=== PATIENT | female | born 1945 | race Two or more races ===

== ENCOUNTER 2017-09-24 11:51 | Emergency (ER) | payer OTHER, BC ==
[2017-09-24 12:15] VITALS: BMI 23.8
[2017-09-24] MEDS ORDERED: SODIUM CHLORIDE 500 ML IV STA (12:30)
--- NOTE | 2017-09-24 12:38 | PDOC ---
Attending Attestation - HPI HPI: 09/24/17 12:39 The patient is a 71 year old female brought in by ambulance, accompanied by , with a past significant medical history of endometrial cancer s/p radiation therapy and hiatal hernia who presents to the emergency department after a syncopal episode earlier today. The patient reports decreased eating secondary to complications from her radiation treatment. She states she experienced dizziness while standing in [employer] prior to the syncopal episode. She was standing while experiencing dizziness prior to the episode. She denies any alleviating/modifying factors. She denies any trauma or confusion after her syncopal episode. She reports similar symptoms in the past. She denies any chest pain and shortness of breath. She denies any fever, chills, vomiting, or diarrhea. She denies any focal numbness or weakness. The patient has a surgical history of total hysterectomy. 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 Previous records from 12/2015 was discharged for a GI bleed. - Physicial Exam PE: 09/24/17 12:40 Vitals: Triage Vital signs reviewed General Appearance: no acute distress, well nourished well developed, Head: Atraumatic, normocephalic Eyes: Pupils equal reactive round, extraocular movement intact Nose: Nares patent bilaterally;no nasal congestion Throat: mucous membranes moist, Neck: Supple; No Nuchal rigidity Chest Wall: Nontender Cardiac: regular rate and rhythm, no murmurs, no rubs, no gallops, Lungs: Clear to auscultation bilateral, good air movement bilaterally, Abdomen: Soft, nondistended, normal bowel sounds, nontender to palpation Rectal: Exam deferred Extremities: Full range of motion to all extremities, no cyanosis, clubbing, or edema Skin: Warm and dry, no rashes or lesions, no petechiae Neuro: AOX3; Cranial Nerves 2-12 grossly c intact, Strength intact to all extremities, Sensation intact to all extremities, gait normal Psych: normal mood, normal affect - Medical Decision Making 09/24/17 12:38 Documentation prepared by Shana Cortez, acting as medical chemist for Leroy Calzada MD. 09/24/17 13:35 CXR: Reported by Dr. Derrick Arauz Impression: No acute pathology. <Shana Cortez - Last Filed: 09/24/17 13:35> - Resident Resident Name: Jonathan Gallardo - ED Attending Attestation I have performed the following: I have examined & evaluated the patient, The case was reviewed & discussed with the resident, I agree w/resident's findings & plan, Exceptions are as noted - Medical Decision Making History and examination consistent with vagal syncope likely secondary to not eating breakfast this morning. Patient had clear prodrome sat down at [employer] and then passed out. No asymptomatic with a normal EKG we'll check labs hydrate and reassess. 09/24/17 16:17 Pt. with extensive GI history can only tolerate ensure and fluids by mouth did not have anything for breakfast this morning while in a hot [employer]ism after standing began to feel dizzy lightheaded sweating had a syncopal episode spontaneous return of vitals In the emergency department status post IV fluids patient feels much better EKG with no ischemic changes no evidence of WPW, Brugada, prolonged QT. Her laboratory analysis was unremarkable, pt. feels much better and is able to ambulate comfortably around the emergency department. She'll be discharged to the care of her family. She'll follow-up with her primary care provider this week she'll return to the emergency department for any severe worsening symptoms or for any concerns. <Leroy Calzada - Last Filed: 09/24/17 16:19> Heart Score/ECG Review - ECG Intrepretation Comment:: 09/24/17 12:14 EKG performed at 12:13 demonstrates rate of 53, normal axis. No T wave inversions, no ST elevations. <Shana Cortez - Last Filed: 09/24/17 13:35>
--- NOTE | 2017-09-24 12:40 | PDOC ---
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 She states that she has been eating less lately as she's on a restricted diet due to complications from her radiation treatments. She states that she was standing in [employer] she she started to feel dizzy, weak and generally not well before sitting down and passing out. She states that she was not confused afterwards and denies any trauma. She denies chest pain, shortness of breath, leg swelling. Denies fevers, chills, vomiting. States that she has some nausea, but that it is at her baseline. 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,gerd, poor po intake, sees GI specia) Disorders: No HTN: No Hypercholesterolemia: No Liver Disease: No Seizures: No Thyroid Disease: No - Surgical History Abdominal Surgery: No Appendectomy: No Cardiac Surgery: No Cholecystectomy: No Lung Surgery: No Neurologic Surgery: No Orthopedic Surgery: No - Suicide/Smoking/Psychosocial Hx Smoking History: Never smoked Have you smoked in the past 12 months: No Information on smoking cessation initiated: No Hx Alcohol Use: No Drug/Substance Use Hx: No Substance Use Type: None Hx Substance Use Treatment: No Review of Systems - Review of Systems Comments:: 09/24/17 12:40 GENERAL/CONSTITUTIONAL: No fever or chills. HEAD, EYES, EARS, NOSE AND THROAT: No change in vision. No sore throat. CARDIOVASCULAR: No chest pain or shortness of breath RESPIRATORY: No cough, wheezing, or hemoptysis. GASTROINTESTINAL: Positive for nausea. Negative for vomiting, diarrhea or constipation. GENITOURINARY: No dysuria, frequency, or change in urination. MUSCULOSKELETAL: No joint or muscle swelling or pain. No neck or back pain. SKIN: No rash NEUROLOGIC: No headache, vertigo, loss of consciousness, or change in strength/ sensation. ALLERGIC/IMMUNOLOGIC: No hives or skin allergy. *Physical Exam - Vital Signs Last Vital Signs Temp Pulse Resp BP Pulse Ox 97.3 F L 56 L 20 132/71 99 09/24/17 12:12 09/24/17 12:12 09/24/17 12:12 09/24/17 12:12 09/24/17 12:12 - Physical Exam Comments: 09/24/17 12:41 GENERAL: Awake, alert, and fully oriented, in no acute distress HEAD: No signs of trauma, normocephalic, atraumatic EYES: PERRLA, EOMI, sclera anicteric, conjunctiva clear ENT: Auricles normal inspection, hearing grossly normal, nares patent, oropharynx clear without exudates. Dry mucosa LUNGS: No distress, speaks full sentences, clear to auscultation bilaterally HEART: Regular rate and rhythm, normal S1 and S2, no murmurs, rubs or gallops, peripheral pulses normal and equal bilaterally. ABDOMEN: Soft, nontender, normoactive bowel sounds. No guarding, no rebound. No masses EXTREMITIES: Normal inspection, Normal range of motion, no edema. No clubbing or cyanosis. NEUROLOGICAL: Cranial nerves II through XII grossly intact. Normal speech, no focal sensorimotor deficits SKIN: Warm, Dry, normal turgor, no rashes or lesions noted. 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 Vital signs notable for bradycardia to 56. Not on beta blockers. Patient appears well, but slightly dry. Differential diagnosis weighted towards vasovagal syncope, but will evaluate for ACS, arrhythmia, pneumonia, uti. 09/24/17 12:46 EKG shows sinus bradycardia (rate 53). No st elevations/depressions. Normal axis , regular rhythm. Normal TN, QRS, QTc intervals. 09/24/17 14:11 Laboratory Tests 09/24/17 09/24/17 09/24/17 12:55 12:59 13:14 WBC 10.0 D Hgb 11.5 D Hct 36.5 D Plt Count 256 D BUN 19 H D Creatinine 0.8 D Creat Clearance w eGFR > 60 Troponin I < 0.02 Urine Nitrite Negative Ur Leukocyte Esterase Negative CXR read as no acute cardiopulmonary disease. CBC normal. CMP shows normal kidney function, no significant abnormalities. Trop negative. UA negative. Patient received 500ml of IV fluids, states that she's feeling well. Did walk test around department. Reports no chest pain, shortness of breath, or dizziness , says that she feels fine. Wants to go home. Richardson syncope negative. Will discharge with PCP follow up and return precautions. *DC/Admit/Observation/Transfer Diagnosis at time of Disposition: Syncope - Discharge Dispostion Disposition: HOME Condition at time of disposition: Good Admit: No - Referrals Referrals: Thomas Swann MD [Primary Care Provider] - - Patient Instructions Printed Discharge Instructions: DI for Syncope in Adults (Fainting) Additional Instructions: Please return if you have any new, worsening or concerning symptoms. Please call to make an appointment to see your PCP tomorrow. Please see your PCP early this week. - Post Discharge Activity
[2017-09-24 13:11] LABS: BASO % 0.7 % (0-2.0); EOS % 2.1 % (0-4.5); HEMATOCRIT 36.5 % (32.4-45.2); HEMOGLOBIN 11.5 GM/dL (10.7-15.3); LYMPH % 13.5 % (8-40); MCH 25.1 pg (25.7-33.7); MCHC 31.4 g/dl (32.0-36.0); MEAN CELL VOLUME 79.7 fl (80-96); MEAN PLT VOLUME 8.5 fl (7.5-11.1); MONO % 5.1 % (3.8-10.2); NEUT % 78.6 % (42.8-82.8); PLATELET COUNT 256 K/MM3 (134-434); RBC 4.58 M/mm3 (3.60-5.2); RDW 13.9 % (11.6-15.6)
[2017-09-24 13:25] LABS: INR 1.02 (0.82-1.09); PROTHROMBIN TIME (PATIENT) 11.5 SEC (9.98-11.88)
[2017-09-24 13:36] LABS: URINE APPEARANCE SLCLOUDY; URINE BILIRUBIN NEGATIVE (NEGATIVE); URINE BLOOD NEGATIVE (NEGATIVE); URINE COLOR YELLOW; URINE GLUCOSE (UA) NEGATIVE (NEGATIVE); URINE KETONE NEGATIVE (NEGATIVE); URINE LEUK ESTERASE NEGATIVE (NEGATIVE); URINE NITRITE NEGATIVE (NEGATIVE); URINE PROTEIN NEGATIVE (NEGATIVE); URINE UROBILINOGEN NEGATIVE mg/dL (0.2-1.0)
[2017-09-24 13:40] LABS: ALBUMIN 3.4 g/dl (3.4-5.0); ANION GAP 5 (8-16); BLOOD UREA NITROGEN 19 mg/dL (7-18); CALCIUM 8.4 mg/dL (8.5-10.1); CHLORIDE 107 mmol/L (98-107); CO2 28 mmol/L (21-32); GLUCOSE,RANDOM 109 mg/dL (74-106); SODIUM 140 mmol/L (136-145)
[2017-09-24 13:45] LABS: ALK PHOS 61 U/L (45-117); BILIRUBIN,TOTAL 0.3 mg/dL (0.2-1.0); CREATININE 0.8 mg/dL (0.55-1.02); SGPT/ALT 25 U/L (12-78); TOT PROT 7.1 g/dl (6.4-8.2)
[2017-09-24 13:49] LABS: MAGNESIUM 2.1 mg/dL (1.8-2.4); POTASSIUM 4.6 mmol/L (3.5-5.1); SGOT/AST 24 U/L (15-37)
[2017-09-24 14:20] VITALS: BP 128/68; PULSE 64; TEMP 97.1
--- NOTE | 2017-09-25 12:38 | EKG ---
Test Reason : Blood Pressure : / mmHG Vent. Rate : 053 BPM Atrial Rate : 053 BPM P-R Int : 134 ms QRS Dur : 084 ms QT Int : 454 ms P-R-T Axes : 013 013 049 degrees QTc Int : 426 ms SINUS BRADYCARDIA OTHERWISE NORMAL ECG WHEN COMPARED WITH ECG OF 29-DEC-2015 15:19, VENT. RATE HAS DECREASED BY [address] SEGMENT VARIATION Confirmed by RUSLAN LENNON MD ([id number]) on 09/25/2017 12:38:04 PM Referred By: Confirmed By:RUSLAN LENNON MD
== END 2017-09-24 14:28 | disposition home or self-care (01) ==
LOC: JER 11:51
PROC: 3E0337Z Introduction of Electrolytic and Water Balance Substance into Peripheral Vein, Percutaneous Approach (ICD-10-PCS; principal; 2017-09-24)
DX: R55 Syncope and collapse (principal); C54.1 Malignant neoplasm of endometrium; Z90.710 Acquired absence of both cervix and uterus
CPT/HCPCS: 36415; 71046-TC; 80053; 81003; 82550; 83735; 84484; 85025; 85610; 93005; 93010; 96360; 99284-25

== ENCOUNTER 2019-01-30 07:59 | Day surgery (SDC) | payer OTHER, BC ==
[2019-01-29 16:18] VITALS: BMI 23.4
[2019-01-30 10:13] VITALS: TEMP 97
[2019-01-30 14:30] VITALS: BP 126/57; PULSE 64
== END 2019-01-30 12:56 | disposition home or self-care (01) ==
LOC: JASU-ENDO 07:59
PROVIDERS: ATTEND Internal Medicine Gastroenterology
PROC: 0DJD8ZZ Inspection of Lower Intestinal Tract, Via Natural or Artificial Opening Endoscopic (ICD-10-PCS; principal; 2019-01-30 09:00)
DX: Z12.11 Encounter for screening for malignant neoplasm of colon (principal); Z86.010 Personal history of colon polyps; K64.8 Other hemorrhoids; K63.89 Other specified diseases of intestine
CPT/HCPCS: 74270-TC-FY

== ENCOUNTER 2020-08-01 16:08 | Inpatient (IN) | payer OTHER, BC ==
[2020-08-01] MEDS ORDERED: LACTATED RINGERS SOLUTION 1000 ML INFUS.BAG IV ONE (17:06)
[2020-08-01] MEDS ORDERED: ONDANSETRON 4 MG/2 ML VIAL IVPUSH ONE (17:09)
[2020-08-01 18:04] LABS: CHLORIDE 99 mmol/L (98-107); POTASSIUM 4.5 mmol/L (3.5-5.1); SODIUM 132 mmol/L (136-145)
[2020-08-01 18:06] LABS: ALBUMIN 2.7 g/dl (3.4-5.0); ANION GAP 7 MMOL/L (8-16); CO2 25 mmol/L (21-32); LIPASE 242 U/L (73-393)
[2020-08-01 18:07] LABS: BLOOD UREA NITROGEN 8.8 mg/dL (7-18); GLUCOSE,RANDOM 122 mg/dL (74-106)
[2020-08-01 18:09] LABS: CREATININE 0.9 mg/dL (0.55-1.3); SGOT/AST 67 U/L (15-37); SGPT/ALT 26 U/L (13-61)
[2020-08-01 18:11] LABS: BILIRUBIN,TOTAL 0.8 mg/dL (0.2-1)
[2020-08-01 18:12] LABS: ALK PHOS 58 U/L (45-117)
[2020-08-01 18:15] LABS: N-TERMINAL BNP 107.8 pg/ml (5-450)
[2020-08-01 18:59] LABS: EOS % 0.2 % (0-4.5); HEMATOCRIT 32.1 % (32.4-45.2); HEMOGLOBIN 10.7 GM/dL (10.7-15.3); LYMPH % 28.1 % (8-40); MCH 26.9 pg (25.7-33.7); MCHC 33.2 g/dl (32.0-36.0); MEAN CELL VOLUME 80.9 fl (80-96); MEAN PLT VOLUME 7.7 fl (7.5-11.1); MONO % 22.9 % (3.8-10.2); NEUT % 47.8 % (42.8-82.8); PLATELET COUNT 264 K/MM3 (134-434); RBC 3.97 M/mm3 (3.60-5.2); RDW 13.3 % (11.6-15.6); WHITE BLOOD COUNT 4.6 K/mm3 (4.0-10.0)
[2020-08-01 19:59] LABS: EPI CELLS 15 /uL (0-25.1); HYALINE CASTS 5 /uL (0-3.1); PH,URINE 5.5 (5.0-8.0); URINE APPEARANCE CLEAR; URINE BACTERIA 12 /uL (0-1359); URINE BILIRUBIN NEGATIVE (NEGATIVE); URINE COLOR DK YELLOW; URINE GLUCOSE (UA) NEGATIVE (NEGATIVE); URINE KETONE NEGATIVE (NEGATIVE); URINE LEUK ESTERASE NEGATIVE (NEGATIVE); URINE NITRITE NEGATIVE (NEGATIVE); URINE PROTEIN 1+ (NEGATIVE); URINE WBC 12 /uL (0-25.8)
[2020-08-01 20:03] LABS: ANISOCYTOSIS 0; MACROCYTOSIS 0; PLATELET ESTIMATE NORMAL
[2020-08-01 21:03] LABS: URINE RBC 28.9 /uL (0-23.9)
[2020-08-01] MEDS ORDERED: LIDOCAINE HCL 2% JELLY 10 ML CARTRIDGE ONE (22:19)
[2020-08-02] MEDS: SODIUM CHLORIDE 1,000 ML IV SCH ×2 (02:56→14:08)
[2020-08-02 04:36] VITALS: BMI 22.4
[2020-08-02] MEDS ORDERED: ACETAMINOPHEN 1000 MG/100 ML VIAL (NON FORMULARY) IVPB PRN (08:57)
[2020-08-02] MEDS: ACETAMINOPHEN 1000 MG/100 ML VIAL (NON FORMULARY) IVPB PRN (09:41)
[2020-08-02 11:54] LABS: BASO % 0.5 % (0-2.0); HEMATOCRIT 30.9 % (32.4-45.2); HEMOGLOBIN 10.2 GM/dL (10.7-15.3); LYMPH % 26.3 % (8-40); MCH 26.7 pg (25.7-33.7); MEAN CELL VOLUME 80.9 fl (80-96); MEAN PLT VOLUME 8.3 fl (7.5-11.1); NEUT % 54.2 % (42.8-82.8); PLATELET COUNT 263 K/MM3 (134-434); RBC 3.81 M/mm3 (3.60-5.2); RDW 13.3 % (11.6-15.6); WHITE BLOOD COUNT 4.3 K/mm3 (4.0-10.0)
[2020-08-02 11:58] LABS: POTASSIUM 4.6 mmol/L (3.5-5.1)
[2020-08-02 12:01] LABS: CALCIUM 7.7 mg/dL (8.5-10.1)
[2020-08-02 12:04] LABS: CREATININE 0.7 mg/dL (0.55-1.3)
[2020-08-02] MEDS ORDERED: PIPERACILLIN/TAZOBACTAM 3.375 GM VIAL IVPB ONE ×2 (14:05→17:45)
[2020-08-02] MEDS ORDERED: DEXTROSE 5%-WATER - 50 ML IVPB ONE ×2 (14:05→17:45)
[2020-08-02] MEDS: PIPERACILLIN/TAZOB 3.375 GM 3.375 GM in DEXTROSE 5%-WATER - 50 ML IVPB SCH ×2 (14:06→18:32)
[2020-08-02] MEDS ORDERED: BENZOCAINE/MENTH/CETYLPYRD CL 1 EACH LOZENGE MM PRN (18:10)
[2020-08-02] MEDS ORDERED: PHENOL 177 ML SPRAY BOTTLE MM PRN (18:39)
[2020-08-02] MEDS ORDERED: PT OWN MED DRAWER 7, Y5N ONE (20:19)
[2020-08-03] MEDS ORDERED: PIPERACILLIN/TAZOBACTAM 3.375 GM VIAL IVPB ONE ×3 (01:03→18:14)
[2020-08-03] MEDS ORDERED: DEXTROSE 5%-WATER - 50 ML IVPB ONE ×3 (01:04→18:14)
[2020-08-03] MEDS: SODIUM CHLORIDE 1,000 ML IV SCH ×2 (01:44→15:26)
[2020-08-03] MEDS: PIPERACILLIN/TAZOB 3.375 GM 3.375 GM in DEXTROSE 5%-WATER - 50 ML IVPB SCH ×3 (02:43→18:40)
[2020-08-03 08:44] LABS: HEMATOCRIT 30.9 % (32.4-45.2); HEMOGLOBIN 10.1 GM/dL (10.7-15.3); MCH 26.3 pg (25.7-33.7); MCHC 32.7 g/dl (32.0-36.0); MEAN CELL VOLUME 80.3 fl (80-96); MEAN PLT VOLUME 7.7 fl (7.5-11.1); PLATELET COUNT 293 K/MM3 (134-434); RBC 3.84 M/mm3 (3.60-5.2); RDW 13.6 % (11.6-15.6); WHITE BLOOD COUNT 4.7 K/mm3 (4.0-10.0)
[2020-08-03] MEDS: ACETAMINOPHEN 1000 MG/100 ML VIAL (NON FORMULARY) IVPB PRN (08:53)
[2020-08-03 09:04] LABS: POTASSIUM 4.2 mmol/L (3.5-5.1)
[2020-08-03 09:07] LABS: ALBUMIN 2.3 g/dl (3.4-5.0); BLOOD UREA NITROGEN 11.4 mg/dL (7-18); CALCIUM 7.4 mg/dL (8.5-10.1)
[2020-08-03 09:09] LABS: CREATININE 0.6 mg/dL (0.55-1.3)
[2020-08-03 09:10] LABS: PHOSPHOROUS 3.4 mg/dL (2.5-4.9)
[2020-08-03 09:11] LABS: BILIRUBIN,TOTAL 0.8 mg/dL (0.2-1); TOT PROT 5.7 g/dl (6.4-8.2)
[2020-08-04] MEDS ORDERED: PIPERACILLIN/TAZOBACTAM 3.375 GM VIAL IVPB ONE ×3 (01:51→16:38)
[2020-08-04] MEDS ORDERED: DEXTROSE 5%-WATER - 50 ML IVPB ONE ×3 (01:51→16:38)
[2020-08-04] MEDS: PIPERACILLIN/TAZOB 3.375 GM 3.375 GM in DEXTROSE 5%-WATER - 50 ML IVPB SCH ×3 (01:57→16:59)
[2020-08-04] MEDS: SODIUM CHLORIDE 1,000 ML IV SCH ×2 (04:34→17:00)
[2020-08-04 08:55] LABS: BASO % 0.5 % (0-2.0); EOS % 0.3 % (0-4.5); HEMATOCRIT 30.4 % (32.4-45.2); LYMPH % 17.2 % (8-40); MCH 26.4 pg (25.7-33.7); MCHC 32.8 g/dl (32.0-36.0); MEAN CELL VOLUME 80.6 fl (80-96); MEAN PLT VOLUME 7.8 fl (7.5-11.1); MONO % 12.8 % (3.8-10.2); NEUT % 69.2 % (42.8-82.8); PLATELET COUNT 343 K/MM3 (134-434); RBC 3.77 M/mm3 (3.60-5.2); RDW 13.8 % (11.6-15.6); WHITE BLOOD COUNT 6.5 K/mm3 (4.0-10.0)
[2020-08-04 09:19] LABS: POTASSIUM 3.4 mmol/L (3.5-5.1)
[2020-08-04 09:22] LABS: BLOOD UREA NITROGEN 15.9 mg/dL (7-18); CALCIUM 7.6 mg/dL (8.5-10.1)
[2020-08-04 09:26] LABS: CREATININE 0.7 mg/dL (0.55-1.3); PHOSPHOROUS 2.6 mg/dL (2.5-4.9)
[2020-08-04 10:12] LABS: ANISOCYTOSIS 0; MACROCYTOSIS 0; PLATELET ESTIMATE NORMAL; TEAR DROP CELLS 1+
[2020-08-04] MEDS: KCL 10 MEQ IVPB 10 MEQ/100 ML INFUS.BAG IVPB SCH ×3 (17:40→22:42)
[2020-08-04] MEDS: HEPARIN NA (PORCINE) 5,000 UNITS/ML 1ML VIAL SQ SCH (21:35)
[2020-08-05] MEDS: FAMOTIDINE 20 MG/50 ML IVPB 20 MG/50 ML MG IVPB SCH ×3 (01:08→21:43)
[2020-08-05] MEDS ORDERED: PIPERACILLIN/TAZOBACTAM 3.375 GM VIAL IVPB ONE ×3 (01:47→17:17)
[2020-08-05] MEDS ORDERED: DEXTROSE 5%-WATER - 50 ML IVPB ONE ×3 (01:47→17:17)
[2020-08-05] MEDS: SODIUM CHLORIDE 1,000 ML IV SCH ×3 (01:53→16:00)
[2020-08-05] MEDS: PIPERACILLIN/TAZOB 3.375 GM 3.375 GM in DEXTROSE 5%-WATER - 50 ML IVPB SCH ×3 (01:54→17:28)
[2020-08-05] MEDS: HEPARIN NA (PORCINE) 5,000 UNITS/ML 1ML VIAL SQ SCH ×3 (06:19→21:41)
[2020-08-05 08:04] LABS: BASO % 0.7 % (0-2.0); HEMATOCRIT 30.9 % (32.4-45.2); HEMOGLOBIN 9.9 GM/dL (10.7-15.3); LYMPH % 20.4 % (8-40); MCH 26.3 pg (25.7-33.7); MEAN CELL VOLUME 82.2 fl (80-96); MEAN PLT VOLUME 8.1 fl (7.5-11.1); MONO % 11.8 % (3.8-10.2); NEUT % 66.1 % (42.8-82.8); PLATELET COUNT 367 K/MM3 (134-434); RBC 3.76 M/mm3 (3.60-5.2); WHITE BLOOD COUNT 6.2 K/mm3 (4.0-10.0)
[2020-08-05 08:13] LABS: POTASSIUM 3.9 mmol/L (3.5-5.1)
[2020-08-05 08:24] LABS: ALBUMIN 2.1 g/dl (3.4-5.0); BLOOD UREA NITROGEN 12.7 mg/dL (7-18); CALCIUM 7.5 mg/dL (8.5-10.1)
[2020-08-05 08:27] LABS: CREATININE 0.6 mg/dL (0.55-1.3)
[2020-08-05 08:29] LABS: BILIRUBIN,TOTAL 0.5 mg/dL (0.2-1); TOT PROT 5.6 g/dl (6.4-8.2)
[2020-08-05 08:58] LABS: ANISOCYTOSIS 2+; MACROCYTOSIS 0; PLATELET ESTIMATE NORMAL
[2020-08-06] MEDS ORDERED: DEXTROSE 5%-WATER - 50 ML IVPB ONE ×2 (01:38→09:09)
[2020-08-06] MEDS ORDERED: PIPERACILLIN/TAZOBACTAM 3.375 GM VIAL IVPB ONE ×2 (01:38→09:09)
[2020-08-06] MEDS: PIPERACILLIN/TAZOB 3.375 GM 3.375 GM in DEXTROSE 5%-WATER - 50 ML IVPB SCH ×2 (02:02→09:11)
[2020-08-06] MEDS: HEPARIN NA (PORCINE) 5,000 UNITS/ML 1ML VIAL SQ SCH ×2 (05:08→14:32)
[2020-08-06] MEDS: SODIUM CHLORIDE 1,000 ML IV SCH ×2 (05:52→16:27)
[2020-08-06 08:24] LABS: BASO % 0.7 % (0-2.0); EOS % 1.3 % (0-4.5); HEMATOCRIT 30.7 % (32.4-45.2); HEMOGLOBIN 9.9 GM/dL (10.7-15.3); LYMPH % 12.5 % (8-40); MCH 25.9 pg (25.7-33.7); MCHC 32.1 g/dl (32.0-36.0); MEAN CELL VOLUME 80.7 fl (80-96); MEAN PLT VOLUME 7.7 fl (7.5-11.1); MONO % 7.3 % (3.8-10.2); NEUT % 78.2 % (42.8-82.8); PLATELET COUNT 391 K/MM3 (134-434); WHITE BLOOD COUNT 7.9 K/mm3 (4.0-10.0)
[2020-08-06 09:02] LABS: POTASSIUM 3.5 mmol/L (3.5-5.1)
[2020-08-06 09:06] LABS: CALCIUM 7.4 mg/dL (8.5-10.1)
[2020-08-06 09:07] LABS: BLOOD UREA NITROGEN 6.2 mg/dL (7-18)
[2020-08-06 09:10] LABS: CREATININE 0.7 mg/dL (0.55-1.3)
[2020-08-06] MEDS: FAMOTIDINE 20 MG/50 ML IVPB 20 MG/50 ML MG IVPB SCH (09:11)
[2020-08-06 09:48] LABS: ANISOCYTOSIS 0; MACROCYTOSIS 0; PLATELET ESTIMATE NORMAL
[2020-08-06] MEDS ORDERED: BENZOCAINE/MENTH/CETYLPYRD CL 1 EACH LOZENGE MM ONE (14:34)
[2020-08-06 15:25] VITALS: BP 123/69; PULSE 75; TEMP 99.4
== END 2020-08-06 16:26 | disposition home or self-care (01) | DRG 389 ==
LOC: JER 16:08 → JERBED 23:26 → J5S 08-02 02:41
PROVIDERS: ADMIT Hospitalist
PROC: 0D9670Z Drainage of Stomach with Drainage Device, Via Natural or Artificial Opening (ICD-10-PCS; principal; 2020-08-01)
DX: K56.609 Unspecified intestinal obstruction, unspecified as to partial versus complete obstruction (principal); E87.1 Hypo-osmolality and hyponatremia; R11.2 Nausea with vomiting, unspecified; R50.9 Fever, unspecified; Z85.42 Personal history of malignant neoplasm of other parts of uterus; K44.9 Diaphragmatic hernia without obstruction or gangrene; K76.9 Liver disease, unspecified
CPT/HCPCS: 36415; 71046-TC-FY; 74018-TC-FY; 74019-TC-FY; 74177-TC; 80048; 80053; 81003; 83605; 83690; 83735; 83880; 84100; 84484; 85025; 85027; 87040; 87086; 93005; 93010; 99285-25; C9803; J0131; J1644; Q9967; U0003